=== PATIENT | female | born 1975 | race Caucasian/White ===

== ENCOUNTER 2017-08-29 10:45 | Emergency (ER) | payer OTHER ==
[~2017-08-29] VITALS: Ht 162.6 cm; Wt 57.6 kg
[2017-08-29 10:50] VITALS: TEMP 36.7; Ht 162.6 cm; Wt 57.6 kg
[2017-08-29] MEDS ORDERED: ONDANSETRON 4MG OD TAB PO STA (11:09)
[2017-08-29] MEDS ORDERED: ACETAMINOPHEN 500 MG TAB PO STA (11:09)
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
--- NOTE | 2017-08-29 11:39 | DIAGNOSTIC IMAGING REPORT ---
HEAD CT NONCONTRAST CT DOSE: HISTORY: Headache, neck pain TECHNIQUE: Multiaxial CT images of the head were performed without the use of intravenous contrast. Automated exposure control was utilized for this study. A dose lowering technique was utilized adhering to the principles of ALARA. Comparison: None. Findings: The paranasal sinuses and mastoid air cells are clear. The calvarium and skull base are intact. The ventricles and sulci are within normal limits. There is no mass, hematoma, midline shift, or acute infarct. Impression: No acute intracranial abnormality. Electronically signed by: Juan Mcbride M.D. 08/29/2017 11:37 AM Dictated Date/Time: 08/29/2017 11:29 AM
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
[2017-08-29 12:25] VITALS: BP 99/73; PULSE 71; O2SAT 98
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
== END 2017-08-29 12:46 | disposition home or self-care (01) ==
LOC: C.EDB 10:46 → C.EDA 12:46
DX: S06.0X0A Concussion without loss of consciousness, initial encounter (principal); S16.1XXA Strain of muscle, fascia and tendon at neck level, initial encounter; S70.02XA Contusion of left hip, initial encounter; V89.2XXA Person injured in unspecified motor-vehicle accident, traffic, initial encounter; F17.200 Nicotine dependence, unspecified, uncomplicated